=== PATIENT | male | born 1955 | race Caucasian/White ===

== ENCOUNTER 2017-09-26 23:32 | Emergency (ER) | payer OTHER ==
[~2017-09-26] VITALS: Ht 180.3 cm; Wt 138.3 kg
[2017-09-26] MEDS ORDERED: TOPROL XL25 MG PO (23:48)
[2017-09-26] MEDS ORDERED: ADDERALL XR 2020 MG PO (23:48)
[2017-09-27] MEDS ORDERED: HYDROCODONE-AP1 EAC6 PO (00:25)
== END 2017-09-27 00:52 | disposition home or self-care (01) ==
LOC: ER 23:32
DX: S92.402A Displaced unspecified fracture of left great toe, initial encounter for closed fracture (principal); I10 Essential (primary) hypertension; W22.03XA Walked into furniture, initial encounter; Y93.89 Activity, other specified; Y92.89 Other specified places as the place of occurrence of the external cause; Y99.8 Other external cause status

== ENCOUNTER 2019-08-20 17:50 | Inpatient (IN) | payer OTHER ==
[~2019-08-20] VITALS: Ht 152.4 cm; Wt 134.4 kg
[~2019-08-20 17:50] MED LIST: ADDERALL XR 2020 MG PO; HYDROCODONE-AP1 EAC6 PO; TOPROL XL25 MG PO
[2019-08-20 17:53] VITALS: BP 146/90
[2019-08-20] MEDS ORDERED: ENALAPRIL MALEA20 MG PO (18:12)
[2019-08-20] MEDS ORDERED: CIALIS20 MG PO (18:13)
[2019-08-20] MEDS ORDERED: ZYRTEC10 M5 PO (18:14)
[2019-08-20 18:34] LABS: ABSOLUTE NEUTROPHILS 9.4 thou/uL (1.4-8.2); BASOPHILS 0.3 % (0.0-2.0); EOSINOPHILS 0.3 % (0.0-3.0); HEMATOCRIT 38.6 % (42.0-52.0); LYMPHOCYTES 8.5 % (24.0-44.0); MCH 21.1 pg (26.0-34.0); MCHC 31.2 g/dL (28.0-37.0); MCV 67.7 fL (80.0-100.0); MONOCYTES 5.4 % (1.0-8.0); PLATELET COUNT 259 thou/uL (150-400); POLYS 85.5 % (36.0-66.0)
[2019-08-20 18:35] LABS: ANION GAP 6 mmol/L (7-16); BUN 21 mg/dL (7-18); CALCIUM 9.3 mg/dL (8.5-10.1); CHLORIDE 99 mmol/L (98-107); CO2 28 mmol/L (21-32); GLUCOSE 174 mg/dL (74-106); POTASSIUM 4.1 mmol/L (3.5-5.1); SODIUM 133 mmol/L (136-145)
[2019-08-20 18:46] LABS: ALBUMIN 4.1 g/dL (3.4-5.0); DIRECT BILIRUBIN 1.4 mg/dL (<0.1-0.2); LIPASE 171 U/L (73-393); SGOT 118 U/L (15-37); SGPT 102 U/L (30-65); TOTAL BILIRUBIN 2.1 mg/dL (<0.1-1.0); TOTAL PROTEIN 8.2 g/dL (6.4-8.2); TROPONIN-I <0.06 ng/mL (<0.06)
[2019-08-20 19:07] LABS: ANISOCYTOSIS 1+; POLYCHROMASIA OCCASIONAL
[2019-08-20 19:08] LABS: LARGE PLATELETS OCCASIONAL
[2019-08-20 21:10] VITALS: BP 131/78
[2019-08-20 21:45] VITALS: BP 129/73
[2019-08-21 04:32] VITALS: BP 127/76
[2019-08-21 05:34] LABS: HEMATOCRIT 35.5 % (42.0-52.0); HEMOGLOBIN 11.2 gm/dL (14.0-18.0); MCH 21.4 pg (26.0-34.0); MCHC 31.6 g/dL (28.0-37.0); MCV 67.7 fL (80.0-100.0); RBC 5.24 mil/uL (4.50-6.00); RDW 16.3 % (10.5-14.5); WBC 8.9 thou/uL (4.0-11.0)
[2019-08-21 05:38] LABS: ALBUMIN 3.6 g/dL (3.4-5.0); CALCIUM 8.4 mg/dL (8.5-10.1); CREATININE 0.8 mg/dL (0.7-1.3); POTASSIUM 3.7 mmol/L (3.5-5.1); TOTAL BILIRUBIN 2.5 mg/dL (<0.1-1.0); TOTAL PROTEIN 7.2 g/dL (6.4-8.2)
[2019-08-21 07:32] VITALS: BP 114/60
--- NOTE | 2019-08-21 08:00 | EKG ---
[place] [address] [facility] [place] [address] ELECTROCARDIOGRAM REPORT Name: STACY THAPA Room #: 433-I ADM IN M.R.#: [id number] Admission: 08/20/19 Attend Phys: Chago Schultz MD Discharge: Date of : 51 Report #: [id number] THIS REPORT FOR: //name// [facility] ED Test Date: 2019-08-20 Test Time: 18:03:11 Pat Name: STACY THAPA Department: Room: [facility] Gender: M Senior Software Engineer: ALIA : 1955 Requested By: Alea Forrest Order Number: [id number] MD: Gregg Pablo Measurements Intervals [place] Rate: 65 P: 30 NC: 178 QRS: -23 QRSD: 120 T: -7 QT: 397 QTc: 413 Interpretive Statements Sinus rhythm Left ventricular hypertrophy Borderline T abnormalities, inferior leads No previous ECG available for comparison Electronically Signed On 08-21-2019 7:59:56 [employer] by Gregg Pablo [email or web address] <ELECTRONICALLY SIGNED> By: Gregg Pablo MD 08/21/19 0759 02 02 Gregg Pablo MD /ADELFO
[2019-08-21 14:44] VITALS: BP 120/70
[2019-08-21 16:00] VITALS: BP 131/73; BP 159/79
[2019-08-21 19:00] VITALS: BP 118/70
[2019-08-22 03:45] VITALS: BP 134/79
[2019-08-22 06:50] LABS: ALBUMIN 3.4 g/dL (3.4-5.0); CREATININE 0.9 mg/dL (0.7-1.3); POTASSIUM 3.8 mmol/L (3.5-5.1); TOTAL BILIRUBIN 0.6 mg/dL (<0.1-1.0); TOTAL PROTEIN 6.9 g/dL (6.4-8.2)
[2019-08-22 08:05] VITALS: BP 133/71
[2019-08-22 20:04] VITALS: BP 144/65
[2019-08-22 20:58] VITALS: BP 150/75
[2019-08-22 21:58] VITALS: BP 166/68
[2019-08-22 23:57] VITALS: BP 139/77
[2019-08-23 05:23] VITALS: BP 133/73
[2019-08-23 07:42] VITALS: BP 138/75
[2019-08-23] MEDS ORDERED: TRAMADOL 50 MG50 MG PO (10:59)
[2019-08-23 12:19] VITALS: BP 129/62
[2019-08-23 13:28] VITALS: BP 129/62
--- NOTE | 2019-08-26 10:06 | PATH ---
[facility] [address] [place] [address] PATHOLOGY RPT PROCEDURE Name: SIGIFREDO THAPA Room #: 463-P [facility] IN M.R.#: [id number] Admission: 08/20/19 Date of : 51 Discharge: 08/23/19 Report #: [id number] Path Case #: [id number] [facility] Accession Number: [id number] . 01 Material submitted: . gallbladder - GALLBLADDER . 01 Clinical history: . Cholecystitis . 02 Diagnosis: Gallbladder, cholecystectomy: - Mild chronic cholecystitis. - Cholelithiasis. (IUV/db; 08/24/2019) LBQ 08/24/2019 1539 Local . 02 Electronically signed: . Livia Moore MD, Pathologist NPI- [id number] . 01 Gross description: . The specimen is received in formalin, labeled "Sigifredo Domenica, gallbladder". Received is an intact gallbladder measuring 10.8 x 3.5 x 2.7 cm in greatest dimensions displaying an adipose covered serosal surface. Opening the specimen reveals a velvety, bile-stained mucosa with a gallbladder wall thickness of 0.1 cm. Calculi are present displaying a yellow-fan and slightly nodular appearance, and no masses or lesions are noted grossly. [employer] sections, to include the proximal margin, are submitted in cassette A1. (CAA; 08/23/2019) QA/[facility] 08/23/2019 1506 Local . 02 Pathologist provided ICD-10: K80.10 . 02 CPT . 808665 Specimen Comment: A courtesy copy of this report has been sent to [phone] Specimen Comment: Report sent to Performed at: [address] [id number] MD Tim Meraz MD Phone: [phone] Performed at: [address] [id number] [address] [address] PATHOLOGY RPT PROCEDURE Name: SIGIFREDO THAPA Room #: 463-P [facility] IN M.R.#: [id number] Admission: 08/20/19 Date of : 51 Discharge: 08/23/19 Report #: [id number] Path Case #: [id number] MD Livia Moore MD Phone: [phone]
== END 2019-08-23 14:38 | disposition home or self-care (01) | DRG 418 ==
LOC: ER 17:50 → EROBS 20:44 → 4S 20:44 → 4W 20:44 → 4S 21:33 → 4W 08-22 05:20 → ENTRNSPT 08-23 14:11 → EDTRNSPTSTS 08-23 14:31 → 4W 08-23 14:38
PROVIDERS: Emergency Medicine Emergency Medical Services; Hospitalist; Nurse Practitioner Family; ADMIT Internal Medicine
PROC: 0FT44ZZ Resection of Gallbladder, Percutaneous Endoscopic Approach (ICD-10-PCS; principal; 2019-08-22)
PROC: BF131ZZ Fluoroscopy of Gallbladder and Bile Ducts using Low Osmolar Contrast (ICD-10-PCS; principal; 2019-08-22)
DX: K80.00 Calculus of gallbladder with acute cholecystitis without obstruction (principal); Z68.43 Body mass index [BMI] 50.0-59.9, adult; E66.01 Morbid (severe) obesity due to excess calories; E80.6 Other disorders of bilirubin metabolism; D56.9 Thalassemia, unspecified; F90.9 Attention-deficit hyperactivity disorder, unspecified type; I10 Essential (primary) hypertension; R74.0 Nonspecific elevation of levels of transaminase and lactic acid dehydrogenase [LDH]; Z79.899 Other long term (current) drug therapy; Z88.0 Allergy status to penicillin; Z88.8 Allergy status to other drugs, medicaments and biological substances; Z72.89 Other problems related to lifestyle
CPT/HCPCS: 10040; 10100; 10195; 50010; 50101; 50249; 50411; 50558; 51489; 52265; 52266; 53310; 53312; 54022; 55245; 56462; 56525; 56526; 56674; 62110; 62900; 70005